=== PATIENT | female | born 1960 | race Caucasian/White ===

== ENCOUNTER 2019-01-17 17:34 | Emergency (ER) | payer MEDICAID, OTHER ==
[~2019-01-17] VITALS: Ht 162.6 cm; Wt 74.8 kg
[2019-01-17 17:34] VITALS: BP 140/77
--- NOTE | 2019-01-17 17:34 | NUR ---
Patient BIBA BLS, transferred to bed 10. RN evaluating patient at bedside.
--- NOTE | 2019-01-17 17:34 | NUR ---
PT BIB EMS FROM [facility] TODAY IN THE MORNING. PER EMS, PT DIDN'T HIT HER HEAD. PT ABLE TO VERBALIZE PAIN TO BILATERAL KNEES, BUT UNABLE TO TELL THE PAIN SCALE. PER EMS, PT WAS GIVEN TYLENOL AT FACILITY. PT PLACED ON FULL PRODUCTION PACKAGER. ER TO EVALUATE PT.
--- NOTE | 2019-01-17 17:42 | NUR ---
DR FERRARO AT BEDSIDE FOR PT EVALUATION
--- NOTE | 2019-01-17 18:09 | NUR ---
sound effects technician at bedside.
--- NOTE | 2019-01-17 18:28 | NUR ---
JESSICA BROOKE LEFT A MESSAGE FOR ME TO CALL HER BACK. CALLED JESSICA BROOKE BACK (TEL # [phone]), DAIRY CATTLE FARM MANAGER OF [facility] FOR PT'S STATUS.
--- NOTE | 2019-01-17 19:10 | NUR ---
Pt report given to CAR Dumont. Transfer of care at this time.
--- NOTE | 2019-01-17 19:11 | NUR ---
REPORT RECEIVED FROM CAR CUELLAR.
--- NOTE | 2019-01-17 19:15 | NUR ---
PT STATED SHE NEEDS TO GO TO BATHROOM. ASSISTED ON TO BEDPAN. SURINDER CARE PROVIDED. POSITIONED FOR COMFORT.
[2019-01-17 19:18] LABS: BASOPHILS % (AUTO) 0.4 % (0.0-2.0); HEMATOCRIT 38.7 % (36-48); LYMPHOCYTES # (AUTO) 0.7 K/uL (2.5-16.5); LYMPHOCYTES % (AUTO) 6.6 % (20.5-51.1); MEAN CORPUSCULAR HEMOGLOBIN 33 pg (27-31); MEAN CORPUSCULAR HGB CONC 34 g/dL (33-37); MEAN CORPUSCULAR VOLUME 96.6 fL (80-94); MONOCYTES # (AUTO) 0.5 K/uL (0.8-1.0); MONOCYTES % (AUTO) 4.1 % (1.7-9.3); NEUTROPHILS # (AUTO) 10.1 K/uL (1.8-7.7); NEUTROPHILS % (AUTO) 88.9 % (42.2-75.2); PLATELET COUNT (AUTO) 204 K/uL (140-450); RED CELL DISTRIBUTION WIDTH 12.7 % (11.6-13.7); WHITE BLOOD COUNT (AUTO) 11.4 K/uL (4.8-10.8)
[2019-01-17 19:34] LABS: ALBUMIN 3.7 g/dL (3.4-5.0); ANION GAP 12.6 (8-16); CARBON DIOXIDE 28.3 mmol/L (21-32); CREATININE 0.7 mg/dL (0.6-1.3); POTASSIUM 3.9 mmol/L (3.5-5.1); TOTAL BILIRUBIN 0.3 mg/dL (0.0-1.0)
[2019-01-17] MEDS ORDERED: NACL 0.9% 1,000 ML IV ONE (20:00)
[2019-01-17] MEDS ORDERED: MORPHINE SULFATE 4 MG/ML SYR IVP ONE (20:00)
--- NOTE | 2019-01-17 20:16 | NUR ---
PT ASKING FOR FOOD. SNACKS PROVIDED.
--- NOTE | 2019-01-17 21:00 | NUR ---
PT AWAKE, ALERT, RESTING COMFORTABLY IN BED. PAIN MANAGED AT THIS TIME. SKIN PINK, WARM, DRY. BREATHING EVEN, UNLABORED.
--- NOTE | 2019-01-17 21:30 | NUR ---
TRANSPORT ARRANGED TO RETURN TO FACILITY VIA [facility]. ETA: 0030.
--- NOTE | 2019-01-17 21:41 | NUR ---
PT REQUESTING MORE FOOD. SANDWICH REQUESTED FROM DIGITAL PRODUCTION OPERATOR.
--- NOTE | 2019-01-17 21:49 | NUR ---
SANDWICH PROVIDED. PT EATING AT BEDSIDE.
--- NOTE | 2019-01-17 22:15 | NUR ---
NEW ETA RECEIVED FOR [facility]: 0300.
--- NOTE | 2019-01-17 22:28 | NUR ---
PT AWAKE, RESTING COMFORTABLY IN BED. NO C/O PAIN, DISCOMFORT, DISTRESS AT THIS TIME. VSS. SKIN PINK, WARM, DRY. BREATHING EVEN, UNLABORED.
--- NOTE | 2019-01-17 23:36 | NUR ---
PT AWAKE, RESTING COMFORTABLY IN BED. NO C/O PAIN, DISCOMFORT, DISTRESS AT THIS TIME. VSS. SKIN PINK, WARM, DRY. BREATHING EVEN, UNLABORED.
--- NOTE | 2019-01-18 00:42 | NUR ---
PT AWAKE, RESTING COMFORTABLY IN BED. NO C/O PAIN, DISCOMFORT, DISTRESS AT THIS TIME. VSS. SKIN PINK, WARM, DRY. BREATHING EVEN, UNLABORED.
--- NOTE | 2019-01-18 01:19 | NUR ---
Note lesterone in EDM - 01/18/19 at 0210 by [facility] PT AWAKE, RESTING COMFORTABLY IN BED. NO C/O PAIN, DISCOMFORT, DISTRESS AT THIS TIME. VSS. SKIN PINK, WARM, DRY. BREATHING EVEN, UNLABORED.
--- NOTE | 2019-01-18 01:20 | NUR ---
PT IS CRYING C/O LEG PAIN. DR. BRYAN NOTIFIED. NEW ORDERS RECEIVED.
[2019-01-18] MEDS ORDERED: MORPHINE SULFATE 4 MG/ML SYR IVP ONE (01:25)
--- NOTE | 2019-01-18 01:40 | NUR ---
HYGIENE NEEDS, SURINDER CARE PROVIDED, AND NEW LINENS PROVIDED.
--- NOTE | 2019-01-18 02:08 | NUR ---
PT AWAKE, RESTING COMFORTABLY IN BED. NO C/O PAIN, DISCOMFORT, DISTRESS AT THIS TIME. VSS. SKIN PINK, WARM, DRY. BREATHING EVEN, UNLABORED.
--- NOTE | 2019-01-18 03:12 | NUR ---
HYGIENE AND SURINDER CARE PROVIDED. PT AWAKE/CALM/COMFORTABLE.
--- NOTE | 2019-01-18 03:30 | NUR ---
NEW ETA RECEIVED FOR [facility]: [phone].
--- NOTE | 2019-01-18 03:48 | NUR ---
PT AWAKE, RESTING COMFORTABLY IN BED. NO C/O PAIN, DISCOMFORT, DISTRESS AT THIS TIME. VSS. SKIN PINK, WARM, DRY. BREATHING EVEN, UNLABORED.
[2019-01-18 04:48] VITALS: BP 135/73
--- NOTE | 2019-01-18 04:48 | NUR ---
[facility] ARRIVED FOR PT TRANSPORT BACK TO HOME. PT TRANSFERED TO [facility] WITH VSS. PT AWAKE, ALERT, CALM. SKIN PINK, WARM, DRY. BREATHING EVEN, UNLABORED. REPORT GIVEN TO [facility]. TRANSFER OF CARE AT THIS TIME.
== END 2019-01-18 04:48 ==
LOC: MED 17:34
DX: S80.02XA Contusion of left knee, initial encounter (principal); M25.561 Pain in right knee; R51 Headache; R94.31 Abnormal electrocardiogram [ECG] [EKG]; E03.9 Hypothyroidism, unspecified; F41.9 Anxiety disorder, unspecified; F32.9 Major depressive disorder, single episode, unspecified; F79 Unspecified intellectual disabilities; W19.XXXA Unspecified fall, initial encounter; Y93.89 Activity, other specified; Y92.89 Other specified places as the place of occurrence of the external cause; Y99.8 Other external cause status
CPT/HCPCS: 36415; 73564; 80053; 84484; 85025; 93005; 96361; 96374; 96376; 99284; J2270; J7030; Q0092

== ENCOUNTER 2020-01-25 16:59 | Inpatient (IN) | payer MEDICAID, SELFPAY ==
[~2020-01-25] VITALS: Ht 152.4 cm; Wt 75.7 kg
--- NOTE | 2020-01-25 17:00 | NUR ---
PT UMESH ALS TO ER BED 11. RN EVALUATING AT BEDSIDE.
[2020-01-25 17:09] VITALS: BP 154/93
--- NOTE | 2020-01-25 17:09 | NUR ---
Annie pineda in [facility] - 01/25/20 at 1710 by [facility] PT BIBA ALS TO ER BED 11
--- NOTE | 2020-01-25 17:20 | NUR ---
A 59F WC BOUND PT [facility] C/O STERNAL CP FOR 30 MINS. PT IS NOT ABLE TO DESCRIBE THE QUALITY OF THE PAIN BUT SHE STATES: "MY CHEST IS VERY PAINFUL BUT I DON'T WANT TO CRY." PT DENIES ANY RADIATION OF THE PAIN. NO DIAPHORESIS NOTICED UPON TRIAGE. 325 ASA GIVEN IN ROUTE.PT DENIES COUGH, SOB, NAUSEA, VOMITING, OR ABDOMINAL PAIN/TENDERNESS ON PALPATION. PATIENT STATES PAIN OF 6/10 AT THIS TIME; VSS; PATIENT POSITIONED FOR COMFORT; HOB ELEVATED; BEDRAILS UP X2; BED DOWN. ER MD MADE AWARE OF PT STATUS. SEIZURE PADS PLACED ON BEDRAILS BILATERAL.
[2020-01-25 17:53] LABS: BASOPHILS # (AUTO) 0.1 K/uL (0.00-0.22); BASOPHILS % (AUTO) 0.8 % (0.0-2.0); EOSINOPHILS # (AUTO) 0.1 K/uL (0-0.4); EOSINOPHILS % (AUTO) 1.3 % (0.0-4.0); HEMATOCRIT 42.3 % (36-48); HEMOGLOBIN 13.6 g/dL (12.0-16.0); LYMPHOCYTES # (AUTO) 1.6 K/uL (2.5-16.5); LYMPHOCYTES % (AUTO) 22.2 % (20.5-51.1); MEAN CORPUSCULAR HEMOGLOBIN 31 pg (27-31); MEAN CORPUSCULAR HGB CONC 32 g/dL (33-37); MEAN CORPUSCULAR VOLUME 97.6 fL (80-94); MONOCYTES # (AUTO) 0.5 K/uL (0.8-1.0); MONOCYTES % (AUTO) 7.2 % (1.7-9.3); NEUTROPHILS % (AUTO) 68.5 % (42.2-75.2); PLATELET COUNT (AUTO) 234 K/uL (140-450); RED BLOOD CELL COUNT(AUTO) 4.33 MIL/uL (4.20-5.40); RED CELL DISTRIBUTION WIDTH 13.1 % (11.6-13.7); WHITE BLOOD COUNT (AUTO) 7.3 K/uL (4.8-10.8)
[2020-01-25 18:17] LABS: ALBUMIN 3.7 g/dL (3.4-5.0); CARBON DIOXIDE 31.2 mmol/L (21-32); CREATININE 0.7 mg/dL (0.6-1.3); POTASSIUM 4.2 mmol/L (3.5-5.1); TOTAL BILIRUBIN 0.3 mg/dL (0.0-1.0)
[2020-01-25] MEDS ORDERED: LIDOCAINE VISCOUS 2% 20 ML UDC PO ONE (18:30)
[2020-01-25] MEDS ORDERED: ALUMINUM HYD/MAG/SIMETHICONE 30 ML UDC PO ONE (18:30)
[2020-01-25] MEDS ORDERED: DOCUSATE SODIUM 100 MG GELCAP PO PRN (19:05)
[2020-01-25] MEDS ORDERED: ACETAMINOPHEN 325 MG TAB PO PRN (19:05)
[2020-01-25] MEDS ORDERED: HYDROcodone/APAP 5/325 MG 1 TAB TAB PO PRN (19:05)
[2020-01-25] MEDS ORDERED: ONDANSETRON 4 MG/2 ML VIAL IM/IVP PRN (19:05)
--- NOTE | 2020-01-25 19:12 | NUR ---
report received from shelia campos for continuation of care
[2020-01-25] MEDS ORDERED: OLAN2.5T1 PO (19:15)
[2020-01-25] MEDS ORDERED: FOLI1TAB90 PO (19:15)
[2020-01-25] MEDS ORDERED: MULT1SGL58 PO (19:15)
[2020-01-25] MEDS ORDERED: CYAN100T65 PO (19:15)
[2020-01-25] MEDS ORDERED: MULT-153 PO (19:15)
[2020-01-25] MEDS ORDERED: LEVO0.155 PO (19:15)
[2020-01-25] MEDS ORDERED: PHEN100C3 PO (19:15)
[2020-01-25] MEDS ORDERED: CALC-784 PO (19:15)
--- NOTE | 2020-01-25 19:21 | NUR ---
Pt report given to CAR VILLEGAS. Transfer of care at this time.
[2020-01-25 19:24] LABS: PROTHROMBIN TIME 9.6 secs (10.8-13.4)
[2020-01-25] MEDS ORDERED: NITROGLYCERIN 0.4 MG TAB SL PRN (19:25)
--- NOTE | 2020-01-25 19:28 | NUR ---
pt resting in bed, locked and in lowest position, hob elevated, side rail x2 and seizure precautions in place for pt safety.
[2020-01-25 19:32] LABS: MAGNESIUM 2.1 mg/dL (1.8-2.4); PHOSPHORUS 3.7 mg/dL (2.5-4.9); THYROID STIMULATING HORMONE 0.08 uIU/mL (0.34-3.74)
--- NOTE | 2020-01-25 19:58 | NUR ---
MRSA SWAB COLLECTED AND WALKED TO LAB.
--- NOTE | 2020-01-25 20:10 | NUR ---
PER DR. MURDOCK HOLD OFF ON STRAIGHT CATH TO OBTAIN URINE SAMPLE AT THIS TIME.
[2020-01-25] MEDS: NACL 0.9% 1,000 ML IV SCH (20:27)
[2020-01-25] MEDS ORDERED: SIMVASTATIN 20 MG TAB PO SCH (21:00)
--- NOTE | 2020-01-25 21:37 | NUR ---
collected urine and sent to lab at this time.
--- NOTE | 2020-01-25 21:40 | NUR ---
PT REPOSITION FOR COMFORT W/ ASSISTANCE FROM CAR JAY. PT RESTING IN BED, LOCKED AND IN LOWEST POSITION, HOB ELEVATED , SIDE RAILS X2 AND SEIZURE PRECAUTIONS IN PLACE FOR PT SAFETY.
[2020-01-25 21:43] LABS: APPEARANCE,URINE CLEAR (CLEAR); BILIRUBIN,URINE NEGATIVE (NEGATIVE); BLOOD, URINE NEGATIVE (NEGATIVE); COLOR,URINE YELLOW (YELLOW); LEUKOCYTE ESTERASE ,URINE NEGATIVE (NEGATIVE); NITRITE, URINE NEGATIVE (NEGATIVE); UGLUCOSE NEGATIVE (NEGATIVE)
[2020-01-25 22:02] LABS: BARBITURATE, URINE POSITIVE ng/ml (NEG <=200); BENZODIAZEPINE, URINE NEGATIVE ng/mL (NEG <=200); CANNABINOID, URINE NEGATIVE ng/mL (NEG <=50); COCAINE, URINE NEGATIVE ng/mL (NEG <=300); OPIATE, URINE NEGATIVE ng/mL (NEG <=2000); PHENCYCLIDINE SCREEN,URINE NEGATIVE ng/mL (NEG <=25)
--- NOTE | 2020-01-25 23:25 | NUR ---
PT RESTING IN BED, LOCKED AND IN LOWEST POSITION, AROUSABLE BY VERBAL STIMULATION, HOB ELEVATED , SIDE RAILS X2 AND SEIZURE PRECAUTIONS IN PLACE FOR PT SAFETY.
--- NOTE | 2020-01-26 00:20 | NUR ---
PT PROVIDED SANDWICH AND OJ. PT SITTING UP IN BED , LOCKED AND IN LOWEST POSITION, HOB ELEVATED, SIDE RAILS X2 AND SEIZURE PRECAUTIONS IN PLACE FOR PT SAFETY.
[2020-01-26 01:05] VITALS: BP 146/93
--- NOTE | 2020-01-26 01:05 | NUR ---
Patient will be admitted to care of DR. RODRÍGUEZ. Admited to TELEMETRY. Will go to room 105A. Belongings list completed. Report to CAR ARCE.
--- NOTE | 2020-01-26 01:05 | NUR ---
ADMITTED A 59F FROM ER. CAME BY GURPREET. ON TELE MONITOR-SR. AWAKE ,BUT WITH SEVERE INTELLECTUAL DISABILITY. WITH NO S/S OF ANY DISCOMFORT NOTED. POSITIONED IN BED COMFORTABLY. IV ACCESS ON THE LT WRIST G#20. INCONTINENT . INITIAL SKIN ASSESSMENT WITH SKIN INTACT . BED ON LOWEST POSITION. SIDE RAILS UP X2 AND SIDE RAILS ARE PADDED FOR SEIZURE PRECAUTIONS. CALL LIGHT PLACED WITHIN EASY REACH. .WILL CONTINUE TO MONITOR.
[2020-01-26 02:27] LABS: CHOL/HDL RATIO 4.3 (1-4.5)
--- NOTE | 2020-01-26 02:30 | NUR ---
PT HAD SOME PUDDING. TOLERATED WELL.
[2020-01-26 04:15] VITALS: BP 154/95
[2020-01-26] MEDS: MORPHINE SULFATE 2 MG/ML SYR IVP PRN ×2 (05:05→09:45)
--- NOTE | 2020-01-26 05:05 | NUR ---
PT MOANING FOR PAIN. BUT IV ACCESS INFILTRATED. DC 'D LT WRIST IV AND STARTED A NEW IV ACCESS ON THE LT HAND G#24. CLEAR AND PATENT. MORPHINE 1 MG IVP GIVEN NEEDED. .
--- NOTE | 2020-01-26 06:05 | NUR ---
PT ASLEEP. NO MORE S/S OF ANY PAIN NOTED.
--- NOTE | 2020-01-26 07:25 | NUR ---
ENDORSED PT IN STABLE CONDITION TO AM NURSE FOR CONTINUITY OF CARE. .
--- NOTE | 2020-01-26 07:26 | NUR ---
RECEIVED BEDSIDE REPORT FROM RESEARCH ADMINISTRATOR NURSE, PT STABLE, NO DISTRESS NOTED, IV TO L HAND 24G, PATENT INTACT, INFUSING WELL, PT ON ROOM AIR, NO SOB NOTED, PT ALERT, AWAKE, ABLE TO LET NEED KNOWN, PT HAS MILD INTELLECTUAL DISABILITY, INITIAL ASSESSMENT DONE, ALL SAFETY PRECAUTION MET, CALL LIGHT WITHIN REACH, WILL CONTINUE TO MONITOR.
[2020-01-26 07:54] LABS: BASOPHILS # (AUTO) 0.1 K/uL (0.00-0.22); BASOPHILS % (AUTO) 1.1 % (0.0-2.0); EOSINOPHILS % (AUTO) 0.5 % (0.0-4.0); HEMATOCRIT 39.5 % (36-48); HEMOGLOBIN 13.1 g/dL (12.0-16.0); LYMPHOCYTES # (AUTO) 1.1 K/uL (2.5-16.5); LYMPHOCYTES % (AUTO) 15.5 % (20.5-51.1); MEAN CORPUSCULAR HEMOGLOBIN 32 pg (27-31); MEAN CORPUSCULAR HGB CONC 33 g/dL (33-37); MEAN CORPUSCULAR VOLUME 95.9 fL (80-94); MONOCYTES # (AUTO) 0.6 K/uL (0.8-1.0); MONOCYTES % (AUTO) 8.8 % (1.7-9.3); NEUTROPHILS # (AUTO) 5.2 K/uL (1.8-7.7); NEUTROPHILS % (AUTO) 74.1 % (42.2-75.2); PLATELET COUNT (AUTO) 208 K/uL (140-450); RED BLOOD CELL COUNT(AUTO) 4.12 MIL/uL (4.20-5.40); RED CELL DISTRIBUTION WIDTH 12.4 % (11.6-13.7)
[2020-01-26 07:56] LABS: ANION GAP 12.1 (8-16); CARBON DIOXIDE 28.9 mmol/L (21-32); CREATININE 0.5 mg/dL (0.6-1.3)
[2020-01-26 08:00] VITALS: BP 119/47
[2020-01-26 08:00] LABS: PHOSPHORUS 3.1 mg/dL (2.5-4.9)
[2020-01-26] MEDS ORDERED: ASPIRIN 81 MG TAB.CHEW PO SCH (09:00)
[2020-01-26] MEDS ORDERED: CYANOCOBALAMIN 100 MCG TAB PO SCH (09:00)
[2020-01-26] MEDS ORDERED: METOPROLOL 50 MG TAB PO SCH (09:00)
[2020-01-26] MEDS ORDERED: LEVOTHYROXINE 0.075 MG TAB PO SCH (09:00)
[2020-01-26] MEDS: OLANZapine 2.5 MG TAB PO SCH (09:11)
[2020-01-26] MEDS: CYANOCOBALAMIN 1,000 MCG TAB PO SCH (09:13)
[2020-01-26] MEDS: VITAMIN D 400 IU TAB PO SCH (09:13)
[2020-01-26] MEDS: MULTIVITAMIN 1 TAB PO SCH (09:13)
[2020-01-26] MEDS: amLODIPine 5 MG TAB PO SCH (09:14)
[2020-01-26] MEDS: PHENYTOIN 100 MG CAPER PO SCH (09:14)
[2020-01-26] MEDS: FOLIC ACID 1 MG TAB PO SCH (09:14)
--- NOTE | 2020-01-26 09:23 | NUR ---
PT C/O CHEST PAIN, NITRO GIVEN, PT TOLERATED WELL, NO DISTRESS NOTED, WILL CONTINUE TO MONITOR.
--- NOTE | 2020-01-26 09:45 | NUR ---
PT STILL HAVE CHEST PAIN, MORPHINE GIVEN, PT TOLERATED WELL, WILL CONTINUE TO MONITOR.
--- NOTE | 2020-01-26 10:30 | NUR ---
MOVED PT TO ROOM 120A, PT RESTING, NO DISTRESS NOTED, CALL LIGHT WITHIN REACH.
--- NOTE | 2020-01-26 11:00 | NUR ---
DISCHARGE PLANNING: PER JESSICA [employer] SALES ENGINEER AND SENIOR JAVA WEB DEVELOPER, ONE COVID NEGATIVE IS OK WITH THEM. CHARGE NURSE MADE AWARE. Addendum: 01/26/20 at 1634 by Michaela Marcos CM DC PLANNIN YRS OLD FEMALE PATIENT WAS ADMITTED FROM [facility] WITH A DX OF CHEST PAIN PT HAS A HX OF SEVER INTELLECTUAL DISABILITY , EPILEPSY AND HYPOTHYROIDISM. TROP NEGATIVE X2 EKG NORMAL . CXR SHOWED GENERALIZE HAZINESS IN THE RIGHT LUNG BASE. PULMONARY VASCULAR APPEARS NORMAL. ADMINISTERED ASA 81 MG NITRO SUBLINGUAL AND METOPROLOL 25 MG PO. CONSULTED WITH PATIENT CARE TECHNICIAN DR CASEY . DC PLAN TO GO BACK TO [facility] WHEN STABLE CM TO FOLLOW Addendum: 01/27/20 at 1446 by Adrienne Valentin CM SPOKE TO JESSICA AT [facility] THEY WILL SILK OPENER THE PATIENT TODAY. WE NEED TO FAX OR CALL TOMORROW WITH THE COVID RESULTS. Addendum: 01/27/20 at 1449 by Adrienne Valentin CM TELEPHONE NUMBER FOR [facility] [phone] Addendum: 01/27/20 at 1459 by Adrienne Valentin CM SPOKE TO JESSICA AT [facility] REGARDING PENDING COVID TEST. SHE IS OKAY WITH US SENDING OVER THE RESULTS TOMORROW. DR. ANGY BLUNT SAID THAT SHE IS WORKING TOMORROW AND WILL PROVIDE [facility] WITH THE RESULTS. I PROVIDED DR. BLUNT WITH THE TELEPHONE NUMBER.
--- NOTE | 2020-01-26 11:08 | NUR ---
FUR DRY CLEANER NOTE: Patient's Orientation Person Information Provided By JESSICA BROOKE - PRINT DESIGNER Comments PATIENT IS ABLE TO MAKE NEEDS KNOWN. FAMILY IS NOT INVOLVED IN HEALTHCARE. Vice Investigator, Realtionship and Phone Number JESSICA BROOKE PRINT DESIGNER OF [facility] [phone] JESSICA LOIS [facility] LEAD SOFTWARE ARCHITECT [phone] Healthcare Power of Trimming Operator No Does Patient Have a POLST No Identifying Problems No Social Work Triggers Is A Social Work Consult Needed No Mandate Report Filed No Explanation Of Identifying Problems PATIENT IS A 59-YEAR-OLD FEMALE ADMITTED FOR CHEST PAIN. PATIENT HAS PMHX OF EPILEPSY, HYPOTHYROIDISM, PARALYSIS, AND SEVERE INTELLECTUAL DISABILITY. Admitted From [facility] Pre-Admission Level Of Functioning Status Total Care Prior Resources/Service Comments [facility] - [facility] Prior DME Wheelchair Living Situation Asst'd Living/Board &Half-Way Support No Caregiver Issues Financial Issues No Known Financial Issue Factors/Needs No D/C Needs Identified Pt/Rep Participated In Discharge Plan Yes Discharge Plan Comments TENTATIVE DISCHARGE PLAN IS FOR PATIENT OT RETURN TO [facility]. DC Plan Status Initiated
[2020-01-26 12:00] VITALS: BP 144/82
[2020-01-26] MEDS: IBUPROFEN 600 MG TAB PO PRN (12:33)
--- NOTE | 2020-01-26 12:33 | NUR ---
PT C/O PAIN TO THE CHEST, MEDICATION MOTRIN GIVEN, PT TOLERATED WELL, WILL CONTINUE TO MONITOR.
[2020-01-26] MEDS: NACL 0.9% 1,000 ML IV SCH (13:33)
[2020-01-26 16:00] VITALS: BP 133/53
--- NOTE | 2020-01-26 17:41 | NUR ---
PT RESTING, NO DISTRESS NOTED, WILL CONTINUE TO MONITOR.
--- NOTE | 2020-01-26 19:09 | NUR ---
ENDORSED PT TO TELEGRAPH SERVICE RATER NURSE KARIN YOON FOR CONTINUOUS OF CARE.
--- NOTE | 2020-01-26 19:10 | NUR ---
RECEIVED REPORT FROM AM SHIFT RN. PATIENT IS IN BED. AOX1. NO SOB. WITH IV SITE AT FARIBA 22G, INFUSING IVF AT 60CC/HR. ASSESSMENT DONE. TELE MONITOR ATTACHED. DROPLET PRECAUTION ISOLATION OBSERVED AT ALL TIMES. FALL RISK PROTOCOL IN PLACE. PLAN OF CARE WAS DISCUSSED. CALL LIGHT WITHIN REACH. WILL CONTINUE TO MONITOR.
[2020-01-26 20:00] VITALS: BP 111/68
--- NOTE | 2020-01-26 20:45 | NUR ---
DUE MED GIVEN ORDERED. MED EDUCATION PROVIDED. TOLERATED WELL. DENIES PAIN.
[2020-01-27] VITALS: BP 148/94
[2020-01-27] MEDS: IBUPROFEN 600 MG TAB PO PRN (01:20)
--- NOTE | 2020-01-27 01:20 | NUR ---
PATIENT C/O MODERATE CHEST PAIN. REPOSITIONED. PAIN MED GIVEN ORDERED. NO SOB.
--- NOTE | 2020-01-27 02:20 | NUR ---
PATIENT IS ASLEEP. NO PAIN NOTED.
[2020-01-27 04:00] VITALS: BP 136/73
--- NOTE | 2020-01-27 04:00 | NUR ---
V/S TAKEN. NO SOB. DENIES PAIN. KEPT CLEAN, DRY AND COMFORTABLE.
[2020-01-27] MEDS: NACL 0.9% 1,000 ML IV SCH (04:21)
[2020-01-27] MEDS ORDERED: LEVOTHYROXINE 0.112 MG TAB PO SCH (06:30)
--- NOTE | 2020-01-27 07:19 | NUR ---
ENDORSED PATIENT TO AM SHIFT RN FOR CONTINUITY OF CARE.
--- NOTE | 2020-01-27 07:20 | NUR ---
RECEIVED PATIENT FROM CHIEF ENGINEER RESEARCH NURSE FOR CONTINUITY OF CARE. PATIENT IS AAOX4. RESPIRATIONS EVEN AND UNLABORED, ROOM AIR. VISIBLE CHEST RISE AND FALL NOTED. MED-SURG. ON A REGULAR DIET. DENIES N/V/ABD PAIN AT THIS TIME. CONTINENT. SKIN WARM, DRY, AND INTACT. IV L UPPER ARM G22 RUNNING NS AT 60. IVF RUNNING WELL. FALL PRECAUTION IN PLACE. SAFETY MEASURES IN PLACE. WILL CONTINUE TO MONITOR.
[2020-01-27 08:00] VITALS: BP 148/73
[2020-01-27] MEDS: FOLIC ACID 1 MG TAB PO SCH (08:47)
[2020-01-27] MEDS: OLANZapine 2.5 MG TAB PO SCH (08:47)
[2020-01-27] MEDS: MULTIVITAMIN 1 TAB PO SCH (08:47)
[2020-01-27] MEDS: amLODIPine 5 MG TAB PO SCH (08:47)
[2020-01-27] MEDS: CYANOCOBALAMIN 1,000 MCG TAB PO SCH (08:47)
[2020-01-27] MEDS: PHENYTOIN 100 MG CAPER PO SCH (08:47)
[2020-01-27] MEDS: VITAMIN D 400 IU TAB PO SCH (08:47)
--- NOTE | 2020-01-27 08:48 | NUR ---
GIVEN MORNING MEDICATIONS PO. HEPARIN SUBQ IN THE ABDOMEN. PLATELET 208. PATIENT TOLERATED WELL. GIVEN EDUCATION MEDICATION. FED PATIENT BREAKFAST, ATE 100%. WILL CONTINUE TO MONITOR.
[2020-01-27 10:06] LABS: BASOPHILS # (AUTO) 0.1 K/uL (0.00-0.22); BASOPHILS % (AUTO) 1.4 % (0.0-2.0); EOSINOPHILS # (AUTO) 0.1 K/uL (0-0.4); HEMATOCRIT 42.6 % (36-48); HEMOGLOBIN 13.8 g/dL (12.0-16.0); LYMPHOCYTES # (AUTO) 1.4 K/uL (2.5-16.5); LYMPHOCYTES % (AUTO) 19.3 % (20.5-51.1); MEAN CORPUSCULAR HEMOGLOBIN 31 pg (27-31); MEAN CORPUSCULAR HGB CONC 32 g/dL (33-37); MEAN CORPUSCULAR VOLUME 96.6 fL (80-94); MONOCYTES # (AUTO) 0.5 K/uL (0.8-1.0); MONOCYTES % (AUTO) 7.7 % (1.7-9.3); NEUTROPHILS # (AUTO) 4.9 K/uL (1.8-7.7); NEUTROPHILS % (AUTO) 69.6 % (42.2-75.2); PLATELET COUNT (AUTO) 194 K/uL (140-450); RED BLOOD CELL COUNT(AUTO) 4.41 MIL/uL (4.20-5.40); RED CELL DISTRIBUTION WIDTH 12.5 % (11.6-13.7); WHITE BLOOD COUNT (AUTO) 7.1 K/uL (4.8-10.8)
[2020-01-27 10:23] LABS: ANION GAP 12.7 (8-16); CARBON DIOXIDE 28.2 mmol/L (21-32); CREATININE 0.7 mg/dL (0.6-1.3); POTASSIUM 3.9 mmol/L (3.5-5.1)
[2020-01-27 10:26] LABS: MAGNESIUM 1.9 mg/dL (1.8-2.4); PHOSPHORUS 2.9 mg/dL (2.5-4.9)
--- NOTE | 2020-01-27 10:35 | NUR ---
PARTS CATALOGER AT BEDSIDE CLEANING PATIENT. REPOSITIONED. PATIENT TOLERATED ACTIVITY WELL.
--- NOTE | 2020-01-27 12:59 | NUR ---
VP RHEUMATOLOGY AT BEDSIDE FEEDING THE PATIENT.
[2020-01-27] MEDS ORDERED: LEVO0.118 PO (13:14)
[2020-01-27] MEDS ORDERED: IBUP-2213 PO (13:14)
[2020-01-27] MEDS ORDERED: AMLO5TAB6 PO (13:14)
[2020-01-27 13:56] VITALS: BP 148/73
--- NOTE | 2020-01-27 14:30 | NUR ---
PATIENT IS SLEEPING COMFORTABLY AT THIS TIME. NO SIGNS OF DISTRESS NOTED. BED IN LOW POSITION. CALL LIGHT IS WITHIN REACH. WILL CONTINUE TO MONITOR.
--- NOTE | 2020-01-27 14:45 | NUR ---
SPOKE TO [employer] [place] [employer] SUPERINTENDENT. PATIENT WILL BE TRANSFERED BACK TO [facility] AND [facility] EVEN THOUGH COVID-19 RESULT IS PENDING. SHE ALSO STATED THAT SHE WILL SEND THE RESULT TO [facility]. [phone]. ADDRESS: [address] [place] [id number]
--- NOTE | 2020-01-27 14:53 | NUR ---
SPOKE TO JESSICA OF [facility], SHE ASKED IF WE COULD ARRANGE TRANSPORT IF IT IS POSSIBLE BECAUSE IF THEY PROVIDE IT WON'T BE LATER TONIGHT. WILL INFORM SS.
--- NOTE | 2020-01-27 15:20 | NUR ---
REMOVED IV SITE AND ID BAND. ASSISTED COMPUTER NUMERICAL CONTROL GRINDER TO CLEAN PATIENT AND CHANGED TO ORANGE SHEETS ANG GOWN. PATIENT TOLERATED WELL. DISCHARGE PAPERWORK PRINTED AND GIVEN THE PATIENT. JESSICA HA.
--- NOTE | 2020-01-27 15:26 | NUR ---
UP TO DATE WITH VACCINES.
--- NOTE | 2020-01-27 15:28 | NUR ---
DISCHARGED PATIENT VIA WHEELCHAIR. PERSONNEL FROM [facility] PICKED UP THE PATIENT. PATIENT IS IN STABLE CONDITION
[2020-01-27] MEDS ORDERED: METOPROLOL 50 MG TAB PO SCH (21:00)
== END 2020-01-27 15:20 | disposition home or self-care (01) | DRG 203 ==
LOC: MED 16:59 → EEVIPCON 19:01 → MTU 19:01
PROVIDERS: ADMIT General Practice; ATTEND General Practice
DX: M94.0 Chondrocostal junction syndrome [Tietze] (principal); F72 Severe intellectual disabilities; G83.9 Paralytic syndrome, unspecified; E03.9 Hypothyroidism, unspecified; I10 Essential (primary) hypertension; Z20.828 Contact with and (suspected) exposure to other viral communicable diseases; G40.909 Epilepsy, unspecified, not intractable, without status epilepticus; J98.11 Atelectasis
CPT/HCPCS: 36415; 71045; 80048; 80053; 80305; 81003; 83036; 83735; 83880; 84100; 84439; 84443; 84484; 85025; 85610; 85730; 87081; 93005; 99285; C1758; J1644; J2270; J3420; J7030; U0003-CS

== ENCOUNTER 2020-03-26 10:52 | Emergency (ER) | payer MEDICAID, SELFPAY ==
[~2020-03-26] VITALS: Ht 165.1 cm; Wt 74.8 kg
[~2020-03-26 10:52] MED LIST: AMLO5TAB6 PO; CALC-784 PO; CYAN100T65 PO; FOLI1TAB90 PO; IBUP-2213 PO; LEVO0.118 PO; MULT-2112 PO; OLAN2.5T1 PO; PHEN100C3 PO
--- NOTE | 2020-03-26 10:54 | NUR ---
PT BIBA TO BED 8.
[2020-03-26 11:01] VITALS: BP 139/78
--- NOTE | 2020-03-26 11:07 | NUR ---
AUTHORIZED SHOP TECHNICIAN JUAN JOSE CAREY CALLED AT [phone]. LEFT VM TO RETURN CALL IN ORDER TO DETERMINE PTS CHIEF COMPLAINT.
--- NOTE | 2020-03-26 11:10 | NUR ---
59 Y/F [facility] HYPOXIA PER FACILITY. PER EMS PT SATTING 99% ON RA. PT UNABLE TO ANSWER QUESTION. UPON ASSESSMENT RR EVEN AND UNLABORED. VS WNL. PT DOES NOT APPEAR TO BE IN ANY DISCOMFORT. PMH- SEVERE INTELLECTUAL DISABILITY, ORGANIC BRAIN SYNDROME, HYPOTHYROIDISM, AND DISORDER OF IMPULSE CONTROL
--- NOTE | 2020-03-26 11:15 | NUR ---
DR. IGLESIAS AT BEDSIDE.
--- NOTE | 2020-03-26 11:55 | NUR ---
XR AT BEDSIDE
--- NOTE | 2020-03-26 11:59 | NUR ---
RECEIVED A CALL FROM ANDRY HORTON AFFIRMATIVE ACTION OFFICER OF FACILITY. WAS TOLD BY NURSE PT HAD LOW 02 SAT, STATED IT MIGHT HAVE BEEN AN ERROR IN THE MACHINE, STATED THEY WOULD REPLACE MACHINE. FACILITY HAD CONCERN PT HAD HX OF BEING COVID +
[2020-03-26 14:26] VITALS: BP 120/70
--- NOTE | 2020-03-26 14:26 | NUR ---
Patient discharged with v/s stable. Written and verbal after care instructions given and explained. Patient verbalized understanding. Ambulance Transport with to custodial. All questions addressed prior to discharge. Advised to follow up with PMD.
--- NOTE | 2020-03-26 14:29 | NUR ---
CALLED AND LEFT A VOICEMAIL FOR AUTHORIZED OVERHAULER JUAN JOSE CAREY CALLED AT [phone], IN REGARDS TO PT HEADING BACK TO FACILITY. LEFT A VOICEMAIL WITH REPORT AND CALL BACK NUMBER.
== END 2020-03-26 14:26 | disposition home or self-care (01) ==
LOC: MED 10:52
DX: R09.02 Hypoxemia (principal); E03.9 Hypothyroidism, unspecified; Z79.899 Other long term (current) drug therapy
CPT/HCPCS: 71045; 99283

== ENCOUNTER 2020-05-05 08:51 | Inpatient (IN) | payer MEDICAID, SELFPAY ==
[~2020-05-05] VITALS: Ht 157.5 cm; Wt 63.5 kg
[~2020-05-05 08:51] MED LIST changes: -CYAN100T65 PO; +VITB12 PO
[2020-05-05] MEDS ORDERED: FAMOTIDINE 20 MG/2 ML VIAL IVP ONE (08:55)
[2020-05-05] MEDS ORDERED: methylPREDNISolone SS 125 MG/2 ML VIAL IVP ONE (08:55)
[2020-05-05 09:14] VITALS: BP 113/92
[2020-05-05] MEDS ORDERED: ACETAMINOPHEN 650 MG SUPP RC ONE ×2 (09:34→09:35)
[2020-05-05 09:45] LABS: BASOPHILS % (AUTO) 0.4 % (0.0-2.0); EOSINOPHILS # (AUTO) 0.2 K/uL (0-0.4); EOSINOPHILS % (AUTO) 2.9 % (0.0-4.0); HEMATOCRIT 40.9 % (36-48); HEMOGLOBIN 13.8 g/dL (12.0-16.0); LYMPHOCYTES # (AUTO) 0.5 K/uL (2.5-16.5); LYMPHOCYTES % (AUTO) 9.4 % (20.5-51.1); MEAN CORPUSCULAR HEMOGLOBIN 31 pg (27-31); MEAN CORPUSCULAR HGB CONC 34 g/dL (33-37); MEAN CORPUSCULAR VOLUME 93.1 fL (80-94); MONOCYTES # (AUTO) 0.3 K/uL (0.8-1.0); MONOCYTES % (AUTO) 5.6 % (1.7-9.3); NEUTROPHILS # (AUTO) 4.2 K/uL (1.8-7.7); NEUTROPHILS % (AUTO) 81.7 % (42.2-75.2); PLATELET COUNT (AUTO) 186 K/uL (140-450); RED CELL DISTRIBUTION WIDTH 13.8 % (11.6-13.7); WHITE BLOOD COUNT (AUTO) 5.1 K/uL (4.8-10.8)
[2020-05-05] MEDS ORDERED: NACL 0.9% 1,000 ML IV ONE (09:50)
[2020-05-05 09:58] LABS: ALBUMIN 3.1 g/dL (3.4-5.0); ANION GAP 12.8 (8-16); CARBON DIOXIDE 26.5 mmol/L (21-32); CREATININE 0.8 mg/dL (0.6-1.3); POTASSIUM 4.3 mmol/L (3.5-5.1); TOTAL BILIRUBIN 0.4 mg/dL (0.0-1.0)
[2020-05-05] MEDS ORDERED: WHEA1POW PO (10:39)
[2020-05-05] MEDS ORDERED: HYDR10SY57 PO (10:40)
[2020-05-05 10:48] LABS: BILIRUBIN,URINE 1+ (NEGATIVE); BLOOD, URINE 2+ (NEGATIVE); COLOR,URINE YELLOW (YELLOW); LEUKOCYTE ESTERASE ,URINE NEGATIVE (NEGATIVE); NITRITE, URINE NEGATIVE (NEGATIVE); UGLUCOSE TRACE (NEGATIVE)
[2020-05-05 10:59] LABS: WBC,URINE 0-5 /HPF (0-5)
[2020-05-05 11:00] LABS: APPEARANCE,URINE HAZY (CLEAR)
[2020-05-05 11:03] LABS: RBC,URINE 20-50 /HPF (0-5)
[2020-05-05] MEDS ORDERED: ACETAMINOPHEN 325 MG TAB PO PRN (14:10)
[2020-05-05] MEDS ORDERED: ONDANSETRON 4 MG/2 ML VIAL IM/IVP PRN (14:10)
[2020-05-05] MEDS ORDERED: guaiFENesin DM 200/20 MG-10 ML 10 ML UDC PO PRN (14:10)
[2020-05-05] MEDS ORDERED: POTASSIUM CHLORIDE 10 MEQ TABER PO PRN (14:10)
[2020-05-05] MEDS ORDERED: ZOLPIDEM 5 MG TAB PO PRN (14:10)
[2020-05-05] MEDS ORDERED: DOCUSATE SODIUM 100 MG GELCAP PO PRN (14:10)
[2020-05-05] MEDS ORDERED: HYDROcodone/APAP 7.5/325 MG 1 TAB PO PRN (14:10)
[2020-05-05 14:20] VITALS: BP 150/81
[2020-05-05 14:52] LABS: PROTHROMBIN TIME 9.9 secs (10.8-13.4)
[2020-05-05 14:55] LABS: CHOL/HDL RATIO 5.9 (1-4.5); FREE T4 (FREE THYROXINE) 0.82 ng/dL (0.76-1.46); MAGNESIUM 1.8 mg/dL (1.8-2.4); PHOSPHORUS 3.6 mg/dL (2.5-4.9); THYROID STIMULATING HORMONE 5.11 uIU/mL (0.34-3.74)
[2020-05-05] MEDS: NACL 0.9% 1,000 ML IV SCH (14:56)
[2020-05-05] MEDS ORDERED: AZITHROMYCIN 250 MG TAB PO SCH (15:00)
[2020-05-05] MEDS: LORATADINE 10 MG TAB PO SCH (15:17)
[2020-05-05] MEDS: FAMOTIDINE 20 MG/2 ML VIAL IV SCH (15:20)
[2020-05-05] MEDS: methylPREDNISolone SS 125 MG/2 ML VIAL IVP SCH (20:55)
[2020-05-06] VITALS: BP 125/73
[2020-05-06 00:52] LABS: BARBITURATE, URINE POSITIVE ng/ml (NEG <=200); BENZODIAZEPINE, URINE NEGATIVE ng/mL (NEG <=200); CANNABINOID, URINE NEGATIVE ng/mL (NEG <=50); COCAINE, URINE NEGATIVE ng/mL (NEG <=300); OPIATE, URINE NEGATIVE ng/mL (NEG <=2000); PHENCYCLIDINE SCREEN,URINE NEGATIVE ng/mL (NEG <=25)
[2020-05-06] MEDS: methylPREDNISolone SS 125 MG/2 ML VIAL IVP SCH (04:56)
[2020-05-06] MEDS: LEVOTHYROXINE 0.112 MG TAB PO SCH (05:43)
[2020-05-06 06:12] LABS: BASOPHILS % (AUTO) 1.2 % (0.0-2.0); EOSINOPHILS # (AUTO) 0.1 K/uL (0-0.4); EOSINOPHILS % (AUTO) 1.5 % (0.0-4.0); HEMATOCRIT 35.6 % (36-48); LYMPHOCYTES % (AUTO) 26.6 % (20.5-51.1); MEAN CORPUSCULAR HEMOGLOBIN 32 pg (27-31); MEAN CORPUSCULAR HGB CONC 34 g/dL (33-37); MONOCYTES # (AUTO) 0.4 K/uL (0.8-1.0); MONOCYTES % (AUTO) 10.2 % (1.7-9.3); NEUTROPHILS # (AUTO) 2.3 K/uL (1.8-7.7); NEUTROPHILS % (AUTO) 60.5 % (42.2-75.2); PLATELET COUNT (AUTO) 168 K/uL (140-450); RED BLOOD CELL COUNT(AUTO) 3.79 MIL/uL (4.20-5.40); RED CELL DISTRIBUTION WIDTH 13.7 % (11.6-13.7); WHITE BLOOD COUNT (AUTO) 3.8 K/uL (4.8-10.8)
[2020-05-06 06:26] LABS: ANION GAP 12.2 (8-16); CARBON DIOXIDE 25.2 mmol/L (21-32); CREATININE 0.7 mg/dL (0.6-1.3); POTASSIUM 4.4 mmol/L (3.5-5.1)
[2020-05-06] MEDS: NACL 0.9% 1,000 ML IV SCH ×2 (06:57→23:30)
[2020-05-06 08:00] VITALS: BP 117/69
[2020-05-06 08:06] LABS: T4 (THYROXINE) 9.3 ug/dL (4.5-12.0)
[2020-05-06] MEDS: amLODIPine 5 MG TAB PO SCH (09:07)
[2020-05-06] MEDS: PANTOPRAZOLE 40 MG TABEC PO SCH (09:08)
[2020-05-06] MEDS: AZITHROMYCIN 250 MG TAB PO SCH (09:08)
[2020-05-06] MEDS: PHENYTOIN 100 MG CAPER PO SCH (09:09)
[2020-05-06] MEDS: LORATADINE 10 MG TAB PO SCH (09:09)
[2020-05-06] MEDS: OLANZapine 2.5 MG TAB PO SCH (09:09)
[2020-05-06] MEDS: methylPREDNISolone SS 40 MG/ML VIAL IVP SCH ×2 (13:59→21:09)
[2020-05-06] MEDS: FAMOTIDINE 20 MG/2 ML VIAL IV SCH (14:05)
[2020-05-06 16:00] VITALS: BP 116/67
[2020-05-07] VITALS: BP 118/70
[2020-05-07] MEDS: LEVOTHYROXINE 0.112 MG TAB PO SCH (05:40)
[2020-05-07] MEDS: methylPREDNISolone SS 40 MG/ML VIAL IVP SCH (05:40)
[2020-05-07 06:37] LABS: BASOPHILS % (AUTO) 0.9 % (0.0-2.0); EOSINOPHILS # (AUTO) 0.1 K/uL (0-0.4); EOSINOPHILS % (AUTO) 1.4 % (0.0-4.0); HEMATOCRIT 35.3 % (36-48); HEMOGLOBIN 11.9 g/dL (12.0-16.0); LYMPHOCYTES # (AUTO) 1.6 K/uL (2.5-16.5); LYMPHOCYTES % (AUTO) 36.3 % (20.5-51.1); MEAN CORPUSCULAR HEMOGLOBIN 31 pg (27-31); MEAN CORPUSCULAR HGB CONC 34 g/dL (33-37); MEAN CORPUSCULAR VOLUME 93.2 fL (80-94); MONOCYTES # (AUTO) 0.5 K/uL (0.8-1.0); MONOCYTES % (AUTO) 12.4 % (1.7-9.3); NEUTROPHILS # (AUTO) 2.1 K/uL (1.8-7.7); PLATELET COUNT (AUTO) 181 K/uL (140-450); RED BLOOD CELL COUNT(AUTO) 3.79 MIL/uL (4.20-5.40); RED CELL DISTRIBUTION WIDTH 13.8 % (11.6-13.7); WHITE BLOOD COUNT (AUTO) 4.3 K/uL (4.8-10.8)
[2020-05-07 06:54] LABS: ANION GAP 11.2 (8-16); CARBON DIOXIDE 27.1 mmol/L (21-32); CREATININE 0.5 mg/dL (0.6-1.3); POTASSIUM 4.3 mmol/L (3.5-5.1)
[2020-05-07 08:00] VITALS: BP 115/73
[2020-05-07] MEDS: LORATADINE 10 MG TAB PO SCH (08:38)
[2020-05-07] MEDS: PHENYTOIN 100 MG CAPER PO SCH (08:38)
[2020-05-07] MEDS: amLODIPine 5 MG TAB PO SCH (08:39)
[2020-05-07] MEDS: OLANZapine 2.5 MG TAB PO SCH (08:39)
[2020-05-07] MEDS: PANTOPRAZOLE 40 MG TABEC PO SCH (08:39)
[2020-05-07] MEDS: AZITHROMYCIN 250 MG TAB PO SCH (08:39)
[2020-05-07] MEDS ORDERED: diphenhydrAMINE 50 MG/ML VIAL IVP SCH (13:00)
[2020-05-07] MEDS: FAMOTIDINE 20 MG/2 ML VIAL IV SCH (13:22)
[2020-05-07] MEDS: NACL 0.9% 1,000 ML IV SCH (13:26)
[2020-05-07 16:00] VITALS: BP 118/70
[2020-05-08] VITALS: BP 118/64
[2020-05-08] MEDS: NACL 0.9% 1,000 ML IV SCH (04:58)
[2020-05-08] MEDS: LEVOTHYROXINE 0.112 MG TAB PO SCH (05:47)
[2020-05-08 06:14] LABS: BASOPHILS # (AUTO) 0.1 K/uL (0.00-0.22); EOSINOPHILS # (AUTO) 0.3 K/uL (0-0.4); EOSINOPHILS % (AUTO) 5.3 % (0.0-4.0); HEMATOCRIT 34.9 % (36-48); HEMOGLOBIN 11.6 g/dL (12.0-16.0); LYMPHOCYTES # (AUTO) 2.5 K/uL (2.5-16.5); LYMPHOCYTES % (AUTO) 47.9 % (20.5-51.1); MEAN CORPUSCULAR HEMOGLOBIN 31 pg (27-31); MEAN CORPUSCULAR HGB CONC 33 g/dL (33-37); MEAN CORPUSCULAR VOLUME 94.1 fL (80-94); MONOCYTES # (AUTO) 0.6 K/uL (0.8-1.0); MONOCYTES % (AUTO) 11.7 % (1.7-9.3); NEUTROPHILS # (AUTO) 1.8 K/uL (1.8-7.7); NEUTROPHILS % (AUTO) 34.1 % (42.2-75.2); PLATELET COUNT (AUTO) 187 K/uL (140-450); RED BLOOD CELL COUNT(AUTO) 3.71 MIL/uL (4.20-5.40); RED CELL DISTRIBUTION WIDTH 13.6 % (11.6-13.7); WHITE BLOOD COUNT (AUTO) 5.3 K/uL (4.8-10.8)
[2020-05-08 06:23] LABS: ANION GAP 12.3 (8-16); CARBON DIOXIDE 27.6 mmol/L (21-32); CREATININE 0.5 mg/dL (0.6-1.3); POTASSIUM 3.9 mmol/L (3.5-5.1)
[2020-05-08 08:00] VITALS: BP 127/70
[2020-05-08] MEDS: amLODIPine 5 MG TAB PO SCH (09:53)
[2020-05-08] MEDS: PANTOPRAZOLE 40 MG TABEC PO SCH (09:53)
[2020-05-08] MEDS: OLANZapine 2.5 MG TAB PO SCH (09:53)
[2020-05-08] MEDS: AZITHROMYCIN 250 MG TAB PO SCH (09:53)
[2020-05-08] MEDS: PHENYTOIN 100 MG CAPER PO SCH (09:53)
[2020-05-08] MEDS: LORATADINE 10 MG TAB PO SCH (09:54)
[2020-05-08] MEDS ORDERED: BEN50 PO (10:01)
[2020-05-08] MEDS ORDERED: AZIT250T3 PO (10:01)
[2020-05-08] MEDS ORDERED: CEPH250C16 PO (10:01)
[2020-05-08] MEDS ORDERED: LORA10TA19 PO (10:01)
[2020-05-08] MEDS: FAMOTIDINE 20 MG/2 ML VIAL IV SCH (14:15)
== END 2020-05-08 16:00 | disposition home or self-care (01) | DRG 720 ==
LOC: MED 08:51 → MTU 12:24
PROVIDERS: ADMIT Family Medicine; ATTEND Family Medicine
DX: A41.9 Sepsis, unspecified organism (principal); J69.0 Pneumonitis due to inhalation of food and vomit; E44.1 Mild protein-calorie malnutrition; Z20.828 Contact with and (suspected) exposure to other viral communicable diseases; Z79.899 Other long term (current) drug therapy; E03.9 Hypothyroidism, unspecified; G40.909 Epilepsy, unspecified, not intractable, without status epilepticus; G83.9 Paralytic syndrome, unspecified; T78.2XXA Anaphylactic shock, unspecified, initial encounter; E86.0 Dehydration; I10 Essential (primary) hypertension; F39 Unspecified mood [affective] disorder; R74.01 Elevation of levels of liver transaminase levels; E78.2 Mixed hyperlipidemia; E87.1 Hypo-osmolality and hyponatremia; M84.48XA Pathological fracture, other site, initial encounter for fracture; Z68.25 Body mass index [BMI] 25.0-25.9, adult
CPT/HCPCS: 36415; 71045; 80048; 80053; 80185; 80305; 81001; 82150; 83036; 83605; 83690; 83735; 83880; 84100; 84436; 84439; 84443; 84479; 84484; 85025; 85610; 85730; 87040; 87081; 87086; 93005; 96361; 96374; 96375; 99285; C1758; J0696; J1200; J2920; J2930; J3490; J7030; J7060; Q0092

== ENCOUNTER 2022-01-28 15:28 | Emergency (ER) | payer MEDICAID ==
[~2022-01-28] VITALS: Ht 152.4 cm; Wt 99.8 kg
[~2022-01-28 15:28] MED LIST changes: +AMLO-3 PO; -AMLO5TAB6 PO; +AZIT250T3 PO; +BEN50 PO; +CALC-1141 PO; -CALC-784 PO; +CEPH250C16 PO; +HYDR10SY57 PO; +LORA10TA19 PO; +WHEA1POW PO
[2022-01-28 15:39] VITALS: BP 140/79
--- NOTE | 2022-01-28 16:37 | NUR ---
RAD AT BEDSIDE
--- NOTE | 2022-01-28 17:47 | NUR ---
61YR OLD FEMALE BIB EMS C/O BACK PAIN. PT FROM A [facility]. PT IS BED BOUND. POOR HX . PT IS VERBAL. EMERGENCY CONTACT , CONTACTED PER ROEL ROUSE. PT IS ON BEDSIDE MONITOR.
[2022-01-28] MEDS ORDERED: DOCU-299 PO (18:08)
[2022-01-28] MEDS ORDERED: MIRABULK PO (18:08)
--- NOTE | 2022-01-28 18:25 | NUR ---
PATIENT DC BACK TO LIVING FACILITY. REPORT CALLED TO [facility]. TRANSPORT 15-20 MINS
[2022-01-28 19:24] VITALS: BP 140/79
--- NOTE | 2022-01-28 19:25 | NUR ---
Patient discharged with v/s stable. Written and verbal after care instructions given and explained. Patient alert, oriented and verbalized understanding of instructions. Ambulatory with by caregiver. All questions addressed prior to discharge. ID band removed. Patient advised to follow up with PMD. Rx of given. Patient educated on indication of medication including possible reaction and side effects. Opportunity to ask questions provided and answered.
--- NOTE | 2022-01-28 22:06 | NUR ---
The patient's care was reviewed by Masha Cooley RN.
== END 2022-01-28 19:25 | disposition home or self-care (01) ==
LOC: MED 15:28
DX: K59.00 Constipation, unspecified (principal); M54.9 Dorsalgia, unspecified; E03.9 Hypothyroidism, unspecified; Z79.899 Other long term (current) drug therapy
CPT/HCPCS: 74018; 74176; 99284; Q0092

== ENCOUNTER 2022-02-01 09:20 | Emergency (ER) | payer MEDICAID ==
[~2022-02-01] VITALS: Ht 162.6 cm; Wt 86.2 kg
[2022-02-01 09:20] VITALS: BP 162/93
[~2022-02-01 09:20] MED LIST changes: +DOCU-299 PO; +MIRABULK PO
--- NOTE | 2022-02-01 09:20 | NUR ---
TO BED, UMESH FROM FACILITY WITH C/O RT FLANK PAIN, CONSTIPATION BILATERAL LEG PAIN.
[2022-02-01] MEDS ORDERED: MORPHINE SULFATE 2 MG/ML SYR IVP ONE (09:40)
[2022-02-01] MEDS ORDERED: ONDANSETRON 4 MG/2 ML VIAL IVP ONE (09:40)
[2022-02-01] MEDS ORDERED: NACL 0.9% 1,000 ML IV SCH (09:40)
[2022-02-01 10:12] LABS: BASOPHILS % (AUTO) 0.6 % (0.0-2.0); EOSINOPHILS # (AUTO) 0.2 K/uL (0-0.4); HEMATOCRIT 38.1 % (36-48); HEMOGLOBIN 12.5 g/dL (12.0-16.0); LYMPHOCYTES # (AUTO) 0.8 K/uL (2.5-16.5); LYMPHOCYTES % (AUTO) 10.3 % (20.5-51.1); MEAN CORPUSCULAR HEMOGLOBIN 30 pg (27-31); MEAN CORPUSCULAR HGB CONC 33 g/dL (33-37); MEAN CORPUSCULAR VOLUME 91.8 fL (80-94); MONOCYTES # (AUTO) 0.7 K/uL (0.8-1.0); MONOCYTES % (AUTO) 8.7 % (1.7-9.3); NEUTROPHILS # (AUTO) 6.4 K/uL (1.8-7.7); NEUTROPHILS % (AUTO) 78.4 % (42.2-75.2); PLATELET COUNT (AUTO) 226 K/uL (140-450); RED BLOOD CELL COUNT(AUTO) 4.15 MIL/uL (4.20-5.40); RED CELL DISTRIBUTION WIDTH 13.4 % (11.6-13.7); WHITE BLOOD COUNT (AUTO) 8.2 K/uL (4.8-10.8)
--- NOTE | 2022-02-01 10:22 | NUR ---
TRES AT BEDSIDE
[2022-02-01 10:28] LABS: ALBUMIN 2.9 g/dL (3.4-5.0); ANION GAP 12.2 (8-16); CARBON DIOXIDE 26.7 mmol/L (21-32); CREATININE 0.7 mg/dL (0.6-1.3); POTASSIUM 3.9 mmol/L (3.5-5.1); TOTAL BILIRUBIN 0.6 mg/dL (0.0-1.0)
--- NOTE | 2022-02-01 11:59 | NUR ---
NO URINE NOTED THROUGH [facility]
--- NOTE | 2022-02-01 12:09 | NUR ---
VALERIED MADE AWARE OF NO URINE, NEW ORDER OF STRAIGHT CATH
--- NOTE | 2022-02-01 12:38 | NUR ---
# 12 FR Urinary catheter inserted utilizing sterile technique. Immediate return of 150 ml TRACI urine noted. Urine sample collected and sent to lab. Pt tolerated procedure WELL.
--- NOTE | 2022-02-01 12:45 | NUR ---
URINE WALKED TO LAB HANDED TO MARQUISE BARRIOS TECH
[2022-02-01 12:55] LABS: APPEARANCE,URINE SL CLOUDY (CLEAR); BILIRUBIN,URINE 1+ (NEGATIVE); BLOOD, URINE NEGATIVE (NEGATIVE); COLOR,URINE YELLOW (YELLOW); LEUKOCYTE ESTERASE ,URINE TRACE (NEGATIVE); NITRITE, URINE NEGATIVE (NEGATIVE); UGLUCOSE NEGATIVE (NEGATIVE)
[2022-02-01 13:14] LABS: RBC,URINE 0-5 /HPF (0-5)
[2022-02-01] MEDS ORDERED: PYR100 PO (14:05)
[2022-02-01] MEDS ORDERED: CEPH-588 PO (14:05)
[2022-02-01] MEDS ORDERED: cefTRIAXone 1,000 MG VIAL ONE (14:50)
--- NOTE | 2022-02-01 14:57 | NUR ---
SPOKE TO HEAVEN OF PT BOARDING HOME REGARDING PT CONDITION
--- NOTE | 2022-02-01 14:57 | NUR ---
LAB AT BEDSIDE FOR CULTURES
[2022-02-01 15:38] VITALS: BP 121/74
--- NOTE | 2022-02-01 15:40 | NUR ---
Patient discharged with v/s stable. Written and verbal after care instructions given and explained. Patient alert, oriented and verbalized understanding of instructions. Wheel Chair Assisted with to car. All questions addressed prior to discharge. ID band removed. Patient advised to follow up with PMD. Rx of KELFEX AND PYRIDIUM given. Patient educated on indication of medication including possible reaction and side effects. Opportunity to ask questions provided and answered.
== END 2022-02-01 15:40 ==
LOC: MED 09:20
DX: N12 Tubulo-interstitial nephritis, not specified as acute or chronic (principal); I10 Essential (primary) hypertension; R73.9 Hyperglycemia, unspecified; E03.9 Hypothyroidism, unspecified; Z79.899 Other long term (current) drug therapy; Z79.2 Long term (current) use of antibiotics; Z79.1 Long term (current) use of non-steroidal anti-inflammatories (NSAID)
CPT/HCPCS: 36415; 76770; 80053; 81001; 83605; 83690; 85025; 87040; 87086; 96361; 96365; 96375; 99284; J0696; J2270; J2405; J7030; Q0092

== ENCOUNTER 2022-02-21 17:04 | Emergency (ER) | payer MEDICAID ==
[~2022-02-21] VITALS: Ht 162.6 cm; Wt 113.4 kg
[~2022-02-21 17:04] MED LIST changes: +CEPH-588 PO; +PYR100 PO
[2022-02-21 17:05] VITALS: BP 160/103
--- NOTE | 2022-02-21 17:08 | NUR ---
FRANCES CALVO VIA GURNEY TO BED 04.
--- NOTE | 2022-02-21 17:10 | NUR ---
61 Y.O. BIBA FOR POSSIBLE DVT. PT IS COMING FROM [facility]. CARE TEAM AT FACILITY STATED THAT THE PT R LEG LOOKED LIKE IT HAD SOME SWELLING. FLACC IS A 0. A&OX1, VITALS WNL FOR PT, UNKOWN GAIT, AND SKIN INTACT. NKA HX: HTN, HYPOTHYROIDISM
--- NOTE | 2022-02-21 19:00 | NUR ---
PT REQUESTED WATER, 3 CUPS OF WATER PROVIDED TO PT
[2022-02-21] MEDS ORDERED: NACL 0.9% 1,000 ML IV ONE (19:30)
[2022-02-21] MEDS ORDERED: CEPH-588 PO (19:42)
--- NOTE | 2022-02-21 22:00 | NUR ---
Patient discharged with v/s stable. Written and verbal after care instructions given and explained. Patient alert, oriented and verbalized understanding of instructions. Wheel Chair Assisted with by caregiver. All questions addressed prior to discharge. ID band removed. Patient advised to follow up with PMD. Rx of CEPHALEXIN given. Patient educated on indication of medication including possible reaction and side effects. Opportunity to ask questions provided and answered.
[2022-02-21 22:07] VITALS: BP 145/98
== END 2022-02-21 22:00 | disposition home or self-care (01) ==
LOC: MED 17:04
DX: L03.115 Cellulitis of right lower limb (principal); I10 Essential (primary) hypertension; E03.9 Hypothyroidism, unspecified
CPT/HCPCS: 93971; 96360; 99284; Q0092; J7030